=== PATIENT | female | born 1995 | race Hispanic/Latino ===

== ENCOUNTER 2020-05-03 22:36 | Emergency (ER) | payer SELFPAY ==
[~2020-05-03 22:36] MED LIST: ACET1TAB12 PO; DOCU-116 PO
== END 2020-05-04 00:17 | disposition home or self-care (01) ==
LOC: EDH 22:36
DX: R10.30 Lower abdominal pain, unspecified (principal); R11.2 Nausea with vomiting, unspecified; F41.9 Anxiety disorder, unspecified; F32.9 Major depressive disorder, single episode, unspecified; Z72.0 Tobacco use
CPT/HCPCS: 81025

== ENCOUNTER 2020-05-04 | Emergency (ER) | payer SELFPAY | END 2020-05-04 17:56 | DX: J02.8 Acute pharyngitis due to other specified organisms (principal); B97.89 Other viral agents as the cause of diseases classified elsewhere; Z32.02 Encounter for pregnancy test, result negative; F41.9 Anxiety disorder, unspecified; F32.9 Major depressive disorder, single episode, unspecified; Z98.890 Other specified postprocedural states ==